=== PATIENT | female | born 1960 | race Caucasian/White ===

== ENCOUNTER 2020-02-18 09:21 | Emergency (ER) | payer OTHER ==
[~2020-02-18 09:21] MED LIST: CATAPRES 0.1MG0.1 MG PO; CITALOPRAM HBR20 MG PO; LOPRESSOR 50 MG50 MG PO; MULTIVITAMINS1 EAC1 PO; NEXIUM20 MG PO; NORFLEX 100 MG100 MG PO; OMNICEF 300 MG300 MG PO; PERCOCET 5-3251 EACH PO; REMERON 15 MG T15 MG PO; TRAZODONE HCL100 MG PO; VITAMIN B-121000 MCG PO; Voltaren Gel 1 % TOP
[2020-02-18 10:15] LABS: HEMOGLOBIN 13.8 gm/dl (12.3-15.3); RED BLOOD COUNT 4.55 M/UL (4.00-5.10); WHITE BLOOD COUNT 5.1 K/UL (4.5-11.0)
[2020-02-18 10:44] LABS: BUN/CREATININE RATIO 13 (0-10)
== END 2020-02-18 14:58 | disposition home or self-care (01) ==
LOC: ER1 09:21
PROVIDERS: Physician Assistant
DX: R07.9 Chest pain, unspecified (principal); R06.02 Shortness of breath; K74.60 Unspecified cirrhosis of liver; D69.6 Thrombocytopenia, unspecified; E87.6 Hypokalemia; I10 Essential (primary) hypertension; F17.200 Nicotine dependence, unspecified, uncomplicated; Z98.61 Coronary angioplasty status
CPT/HCPCS: 71045; 80053; 82550; 82553; 83874; 84484; 85025; 85379; 93005; 99285; Q9967

== ENCOUNTER 2020-09-09 13:25 | Inpatient (IN) | payer OTHER ==
[~2020-09-09] VITALS: Ht 167.6 cm; Wt 83.9 kg
[~2020-09-09 13:25] MED LIST changes: -REMERON 15 MG T15 MG PO; -TRAZODONE HCL100 MG PO
[2020-09-09 14:49] LABS: HEMOGLOBIN 14.7 gm/dl (12.3-15.3); RED BLOOD COUNT 4.81 M/UL (4.00-5.10)
[2020-09-09 15:20] LABS: BUN/CREATININE RATIO 28 (0-10)
[2020-09-09] MEDS ORDERED: OXYBUTYNIN CHLO15 MG PO (21:21)
[2020-09-09] MEDS ORDERED: CITALOPRAM HBR40 MG PO (21:23)
[2020-09-10 05:01] LABS: HEMOGLOBIN 13.2 gm/dl (12.3-15.3); RED BLOOD COUNT 4.33 M/UL (4.00-5.10)
[2020-09-10 05:19] LABS: BUN/CREATININE RATIO 20 (0-10)
[2020-09-11 06:47] LABS: HEMOGLOBIN 13.5 gm/dl (12.3-15.3); RED BLOOD COUNT 4.49 M/UL (4.00-5.10); WHITE BLOOD COUNT 9.1 K/UL (4.5-11.0)
[2020-09-11 07:18] LABS: BUN/CREATININE RATIO 11 (0-10)
[2020-09-12 08:29] LABS: BUN/CREATININE RATIO 10 (0-10)
[2020-09-12] MEDS ORDERED: MAG-OX 400 TAB400 MG PO (11:14)
[2020-09-12] MEDS ORDERED: CEFUROXIME500 MG PO (11:14)
== END 2020-09-12 13:17 | disposition home or self-care (01) | DRG 872 ==
LOC: ER1 13:25 → CDU 18:30 → MED SURG 4 20:11
PROVIDERS: Physician Assistant; Physician Assistant Medical; ADMIT Internal Medicine Infectious Disease
DX: A41.59 Other Gram-negative sepsis (principal); K76.6 Portal hypertension; N30.01 Acute cystitis with hematuria; B96.1 Klebsiella pneumoniae [K. pneumoniae] as the cause of diseases classified elsewhere; Z20.822 Contact with and (suspected) exposure to COVID-19; D69.6 Thrombocytopenia, unspecified; K21.9 Gastro-esophageal reflux disease without esophagitis; R11.2 Nausea with vomiting, unspecified; I10 Essential (primary) hypertension; K74.60 Unspecified cirrhosis of liver; E87.6 Hypokalemia; E83.42 Hypomagnesemia; R00.0 Tachycardia, unspecified; Z91.040 Latex allergy status
CPT/HCPCS: 0240U; 36415; 80048; 80053; 81001; 83605; 83735; 84132; 85025; 85027; 87040; 87077; 87086; 87186; 96374; 96375; 99285; C9113; J0696; J2270; J2405; J2550; J3475; J7030

== ENCOUNTER 2020-11-09 19:21 | Inpatient (IN) | payer OTHER ==
[~2020-11-09] VITALS: Ht 170.2 cm; Wt 77.1 kg
[~2020-11-09 19:21] MED LIST changes: +CEFUROXIME500 MG PO; +CITALOPRAM HBR40 MG PO; +MAG-OX 400 TAB400 MG PO; +OXYBUTYNIN CHLO15 MG PO
[2020-11-09 20:26] LABS: HEMOGLOBIN 15.4 gm/dl (12.3-15.3); RED BLOOD COUNT 5.01 M/UL (4.00-5.10); WHITE BLOOD COUNT 13.1 K/UL (4.5-11.0)
[2020-11-09 20:55] LABS: BUN/CREATININE RATIO 18 (0-10)
[2020-11-10 05:13] LABS: HEMOGLOBIN 14.6 gm/dl (12.3-15.3); RED BLOOD COUNT 4.77 M/UL (4.00-5.10)
[2020-11-10 05:15] LABS: WHITE BLOOD COUNT 7.7 K/UL (4.5-11.0)
[2020-11-10 05:32] LABS: BUN/CREATININE RATIO 17 (0-10)
[2020-11-10] MEDS ORDERED: PROAIR HFA8.5 GM INH (11:55)
[2020-11-10] MEDS ORDERED: BENZONATATE100 MG PO (11:55)
[2020-11-10] MEDS ORDERED: IPRAT-ALBUT 0.5-3 ML INH (11:56)
[2020-11-10] MEDS ORDERED: FUROSEMIDE20 MG PO (11:59)
[2020-11-10] MEDS ORDERED: PREDNISONE10 MG PO (11:59)
[2020-11-10] MEDS ORDERED: REMERON 15 MG T15 MG PO (17:10)
[2020-11-10] MEDS ORDERED: TRAZODONE HCL100 MG PO (17:12)
[2020-11-11 04:15] LABS: RED BLOOD COUNT 4.71 M/UL (4.00-5.10)
[2020-11-11 04:25] LABS: WHITE BLOOD COUNT 12.3 K/UL (4.5-11.0)
[2020-11-11 04:29] LABS: BUN/CREATININE RATIO 18 (0-10)
[2020-11-12 03:33] LABS: HEMOGLOBIN 12.7 gm/dl (12.3-15.3)
[2020-11-12 03:56] LABS: WHITE BLOOD COUNT 6.3 K/UL (4.5-11.0)
[2020-11-12 03:57] LABS: RED BLOOD COUNT 4.14 M/UL (4.00-5.10)
[2020-11-12 04:06] LABS: BUN/CREATININE RATIO 22 (0-10)
[2020-11-14 05:20] LABS: HEMOGLOBIN 13.2 gm/dl (12.3-15.3); RED BLOOD COUNT 4.32 M/UL (4.00-5.10)
[2020-11-14 05:21] LABS: WHITE BLOOD COUNT 3.4 K/UL (4.5-11.0)
[2020-11-14 05:49] LABS: BUN/CREATININE RATIO 45 (0-10)
[2020-11-15 05:24] LABS: HEMOGLOBIN 13.6 gm/dl (12.3-15.3); RED BLOOD COUNT 4.46 M/UL (4.00-5.10); WHITE BLOOD COUNT 5.1 K/UL (4.5-11.0)
[2020-11-15 07:52] LABS: BUN/CREATININE RATIO 52 (0-10)
[2020-11-16 05:19] LABS: HEMOGLOBIN 13.8 gm/dl (12.3-15.3); RED BLOOD COUNT 4.51 M/UL (4.00-5.10); WHITE BLOOD COUNT 5.6 K/UL (4.5-11.0)
[2020-11-16 05:58] LABS: BUN/CREATININE RATIO 46 (0-10)
[2020-11-17 10:29] LABS: HEMOGLOBIN 13.3 gm/dl (12.3-15.3); RED BLOOD COUNT 4.34 M/UL (4.00-5.10); WHITE BLOOD COUNT 5.3 K/UL (4.5-11.0)
[2020-11-17 10:46] LABS: BUN/CREATININE RATIO 36 (0-10)
[2020-11-18 08:01] LABS: HEMOGLOBIN 13.5 gm/dl (12.3-15.3); RED BLOOD COUNT 4.62 M/UL (4.00-5.10)
[2020-11-18 08:04] LABS: BUN/CREATININE RATIO 32 (0-10); WHITE BLOOD COUNT 10.1 K/UL (4.5-11.0)
[2020-11-20 07:48] LABS: RED BLOOD COUNT 4.87 M/UL (4.00-5.10)
[2020-11-20 08:58] LABS: BUN/CREATININE RATIO 37 (0-10)
--- NOTE | 2020-11-20 20:22 | NUR ---
PT STATED THAT SHE WANTED TO SET UP A HIPPA CODE WORD OF "BOWLING" SO THAT HER DAUGHTER COULD CALL FOR UPDATES. UNABLE TO EDIT PART 1 IN [employer]
[2020-11-21 04:07] LABS: HEMOGLOBIN 14.9 gm/dl (12.3-15.3); RED BLOOD COUNT 4.93 M/UL (4.00-5.10); WHITE BLOOD COUNT 13.9 K/UL (4.5-11.0)
[2020-11-21 04:53] LABS: BUN/CREATININE RATIO 40 (0-10)
[2020-11-22 07:46] LABS: BUN/CREATININE RATIO 43 (0-10)
[2020-11-22 09:41] LABS: RED BLOOD COUNT 5.65 M/UL (4.00-5.10); WHITE BLOOD COUNT 20.5 K/UL (4.5-11.0)
[2020-11-23 07:54] LABS: HEMOGLOBIN 14.6 gm/dl (12.3-15.3); RED BLOOD COUNT 4.79 M/UL (4.00-5.10); WHITE BLOOD COUNT 13.6 K/UL (4.5-11.0)
[2020-11-23 08:10] LABS: BUN/CREATININE RATIO 43 (0-10)
[2020-11-23 09:39] LABS: RED BLOOD COUNT 5.11 M/UL (4.00-5.10); WHITE BLOOD COUNT 14.1 K/UL (4.5-11.0)
--- NOTE | 2020-11-23 14:27 | NUR ---
1427: ORDERS NOTED TO TX PATIENT TO PCU, AWAITING BED CONFIRMATION. REMAINS ON BIPAP WITH SPO2 OF 86% BIPAP SETTINGS: 10/10, RATE OF 20, FI02 100%.
[2020-11-23 15:29] LABS: HEMOGLOBIN 15.4 gm/dl (12.3-15.3); RED BLOOD COUNT 4.88 M/UL (4.00-5.10)
[2020-11-23 16:56] LABS: HEMOGLOBIN 15.9 gm/dl (12.3-15.3); RED BLOOD COUNT 5.06 M/UL (4.00-5.10); WHITE BLOOD COUNT 16.4 K/UL (4.5-11.0)
[2020-11-23 17:16] LABS: BUN/CREATININE RATIO 45 (0-10)
[2020-11-24 06:58] LABS: HEMOGLOBIN 15.8 gm/dl (12.3-15.3); RED BLOOD COUNT 5.07 M/UL (4.00-5.10)
[2020-11-24 07:04] LABS: WHITE BLOOD COUNT 29.4 K/UL (4.5-11.0)
[2020-11-24 07:34] LABS: BUN/CREATININE RATIO 30 (0-10)
[2020-11-24 14:14] LABS: HEMATOCRIT 43.9 % (34.0-46.6)
[2020-11-25 06:36] LABS: HEMOGLOBIN 15.6 gm/dl (12.3-15.3); RED BLOOD COUNT 4.98 M/UL (4.00-5.10)
[2020-11-25 07:11] LABS: WHITE BLOOD COUNT 19.9 K/UL (4.5-11.0)
== END 2020-11-25 18:10 | disposition expired | DRG 871 ==
LOC: ER1 19:21 → CDU 22:52 → MED SURG 4 22:52 → CCU 22:52 → MED SURG 4 11-10 15:22 → PROG CARE 11-11 15:04 → CCU 11-12 09:20 → MED SURG 4 11-18 16:38 → CCU 11-23 16:00
PROVIDERS: Internal Medicine; Internal Medicine Hematology & Oncology; Internal Medicine Pulmonary Disease; Physician Assistant; Registered Nurse; Surgery; ADMIT Internal Medicine
PROC: 8E0ZXY6 Isolation (ICD-10-PCS; 2020-11-09)
PROC: 3E0333Z Introduction of Anti-inflammatory into Peripheral Vein, Percutaneous Approach (ICD-10-PCS; 2020-11-09)
PROC: XW033E5 Introduction of Remdesivir Anti-infective into Peripheral Vein, Percutaneous Approach, New Technology Group 5 (ICD-10-PCS; 2020-11-09)
PROC: 6A550Z3 Pheresis of Plasma, Single (ICD-10-PCS; principal; 2020-11-23)
PROC: 05HN33Z Insertion of Infusion Device into Left Internal Jugular Vein, Percutaneous Approach (ICD-10-PCS; 2020-11-23)
PROC: 0BH18EZ Insertion of Endotracheal Airway into Trachea, Via Natural or Artificial Opening Endoscopic (ICD-10-PCS; 2020-11-23)
PROC: 5A1945Z Respiratory Ventilation, 24-96 Consecutive Hours (ICD-10-PCS; 2020-11-23)
PROC: 3E033XZ Introduction of Vasopressor into Peripheral Vein, Percutaneous Approach (ICD-10-PCS; 2020-11-25)
DX: A41.89 Other specified sepsis (principal); R65.21 Severe sepsis with septic shock; U07.1 COVID-19; J12.82 Pneumonia due to coronavirus disease 2019; J80 Acute respiratory distress syndrome; G93.41 Metabolic encephalopathy; N17.0 Acute kidney failure with tubular necrosis; D61.818 Other pancytopenia; E87.2 Acidosis; I31.9 Disease of pericardium, unspecified; J93.83 Other pneumothorax; R73.9 Hyperglycemia, unspecified; F17.210 Nicotine dependence, cigarettes, uncomplicated; K74.60 Unspecified cirrhosis of liver; J98.2 Interstitial emphysema; K72.90 Hepatic failure, unspecified without coma; K21.9 Gastro-esophageal reflux disease without esophagitis; H16.001 Unspecified corneal ulcer, right eye; E87.6 Hypokalemia; F10.20 Alcohol dependence, uncomplicated; I10 Essential (primary) hypertension; E83.42 Hypomagnesemia; Z91.81 History of falling; S22.41XS Multiple fractures of ribs, right side, sequela; Z90.710 Acquired absence of both cervix and uterus; Z91.040 Latex allergy status; Z91.19 Patient's noncompliance with other medical treatment and regimen; Z79.82 Long term (current) use of aspirin; Z79.899 Other long term (current) drug therapy; Z80.3 Family history of malignant neoplasm of breast; I46.9 Cardiac arrest, cause unspecified; Z51.5 Encounter for palliative care
CPT/HCPCS: 31500; 36415; 36430; 36600; 51702; 71045; 80048; 80053; 80202; 81001; 82140; 82550; 82553; 82607; 82747; 82803; 82962; 83036; 83605; 83615; 83735; 83874; 83880; 83921; 84132; 84484; 85007; 85025; 85027; 85379; 85384; 85610; 85652; 85730; 86140; 86900; 86901; 87040; 87070; 87075; 87205; 87206; 92526; 92610; 93005; 94002; 94003; 94640; 94660; 94664; 94760; 96365; 96375; 97110-GP-CQ; 97162; 99284; 99285; A6212; C9113; G0378; J1100; J1205; J1335; J1650; J1940; J2185; J2370; J2543; J2704; J2930; J3370; J3480; J7030; J7040; J7050; J7070; M0243; P9035; Q9967; U0002